=== PATIENT | male | born 1985 | race Asian ===

== ENCOUNTER 2016-12-26 21:10 | Emergency (ER) | payer BC, MEDICAID ==
[~2016-12-26] VITALS: Ht 175.3 cm; Wt 93.9 kg
[2016-12-26 21:39] VITALS: BP 131/97
== END 2016-12-27 01:24 | disposition left against medical advice (07) ==
LOC: ER 21:10
DX: M79.89 Other specified soft tissue disorders (principal); T45.0X5A Adverse effect of antiallergic and antiemetic drugs, initial encounter; Y92.89 Other specified places as the place of occurrence of the external cause; Z53.21 Procedure and treatment not carried out due to patient leaving prior to being seen by health care provider

== ENCOUNTER 2017-04-24 14:58 | Emergency (ER) | payer MEDICAID ==
[~2017-04-24] VITALS: Ht 175.3 cm; Wt 90.7 kg
[2017-04-24 15:27] VITALS: BP 130/76
[2017-04-24] MEDS ORDERED: methylPREDNISolone SOD SUCC 125 MG/2 ML VL IM ONE (17:00)
[2017-04-24] MEDS ORDERED: diphenhdrAMINE HCL 50 MG/1 ML VL IM ONE (17:00)
== END 2017-04-24 17:20 | disposition home or self-care (01) ==
LOC: ER 15:02
DX: T78.40XA Allergy, unspecified, initial encounter (principal)
CPT/HCPCS: 96372; 99284; J1200; J2930

== ENCOUNTER 2017-05-22 13:51 | Emergency (ER) | payer MEDICAID, OTHER ==
[~2017-05-22] VITALS: Ht 167.6 cm; Wt 86.2 kg
[2017-05-22 14:11] VITALS: BP 137/86
[2017-05-22] MEDS ORDERED: diphenhdrAMINE HCL 50 MG/1 ML VL IV ONE (16:00)
[2017-05-22] MEDS ORDERED: diphenhdrAMINE HCL 50 MG/1 ML VL IM ONE (16:30)
== END 2017-05-22 16:30 | disposition home or self-care (01) ==
LOC: EDUNIT# 13:51 → ER 13:51
DX: F32.9 Major depressive disorder, single episode, unspecified (principal); R21 Rash and other nonspecific skin eruption
CPT/HCPCS: 96372; 99284; J1200